=== PATIENT | female | born 1985 | race Caucasian/White ===

== ENCOUNTER 2017-11-30 10:42 | Emergency (ER) | payer OTHER ==
[2017-11-30 11:38] LABS: BASOPHILS % 0.3 (0.0-1.5); EOSINOPHILS % 2.1 % (0.0-6.8); MEAN CORPUSCULAR HEMOGLOBIN 29.2 pg (28.0-34.0); MEAN CORPUSCULAR VOLUME 88.1 fl (80.0-100.0); MONOCYTES % 4.7 % (0.0-11.0); NEUTROPHILS # 15.5 # k/uL (1.4-7.7)
[2017-11-30 12:00] LABS: eGFR (African) > 60; eGFR (Non-African) > 60
[2017-11-30] MEDS: fentaNYL CITRATE/PF 100 MCG/ 2ML AMP IVP ONE (13:03)
[2017-11-30] MEDS: 0.9 % SODIUM CHLORIDE 1,000 ML IV ONE (14:35)
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
[2017-11-30] MEDS: KETOROLAC TROMETHAMINE 30 MG/1ML VIAL IVP ONE (14:51)
[2017-11-30 15:02] LABS: APPEARANCE,URINE CLEAR (CLEAR); COLOR,URINE YELLOW (YELLOW); OCCULT BLOOD,URINE 1+ (NEGATIVE); PH URINE 6.5 (5.0 - 8.0); UROBILINOGEN URINE 0.2 Eu (0.2-1.0)
[2017-11-30] MEDS ORDERED: HYDROcodone /APAP 5/325 1 EACH TABLET PO ONE (15:21)
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
[2017-11-30 23:23] VITALS: BP 126/69
== END 2017-11-30 15:15 | disposition home or self-care (01) ==
LOC: ED 10:42
DX: S80.12XA Contusion of left lower leg, initial encounter (principal); R07.9 Chest pain, unspecified; M54.5 Low back pain; M54.6 Pain in thoracic spine; V89.2XXA Person injured in unspecified motor-vehicle accident, traffic, initial encounter; Y92.9 Unspecified place or not applicable; Y93.9 Activity, unspecified; Y99.9 Unspecified external cause status
CPT/HCPCS: 71260; 72125; 72128; 73590; 80053; 81002; 84484; 84703; 85025; 87086; 93005; 96365; 96375; 99285; J1885; J3010; J7030; Q9967; S1016